=== PATIENT | female | born 1945 | race Caucasian/White ===

== ENCOUNTER 2016-06-23 10:10 | Inpatient (IN) | payer MEDICARE, OTHER ==
[2016-06-23 11:06] LABS: HEMATOCRIT 36.5 % (36.0-47.0); HEMOGLOBIN 12.7 g/dL (12.0-15.5); HGB HCT DIFFERENCE 1.6; MEAN CORPUSCULAR HEMOGLOBIN 31.6 pg (27.0-33.4); MEAN CORPUSCULAR HGB CONC 34.8 g/dL (32.0-36.0); MEAN CORPUSCULAR VOLUME 91 fl (80-97); RED BLOOD COUNT 4.02 10^6/uL (3.72-5.28); WHITE BLOOD COUNT 14.9 10^3/uL (4.0-10.5)
[2016-06-23] MEDS ORDERED: NORMAL SALINE 1000 ML 1,000 ML IV ONE (11:08)
[2016-06-23] MEDS ORDERED: IPRATROPIUM/ALBUTEROL 0.5-2.5 MG/3 ML AMPUL NEB ONE ×2 (11:08)
[2016-06-23] MEDS ORDERED: METHYLPREDNISOLONE INJ 125 MG/2 ML SDV IV ONE (11:08)
[2016-06-23 11:24] LABS: ALANINE AMINOTRANSFERASE 44 U/L (9-52); ALBUMIN 3.8 g/dL (3.5-5.0); ALKALINE PHOSPHATASE 121 U/L (38-126); ANION GAP 18 (5-19); ASPARTATE AMINO TRANSFERASE 39 U/L (14-36); BILIRUBIN,DIRECT 0.9 mg/dL (0.0-0.4); BILIRUBIN,TOTAL 1.7 mg/dL (0.2-1.3); BLOOD UREA NITROGEN 24 mg/dL (7-20); CALCIUM 9.8 mg/dL (8.4-10.2); CARBON DIOXIDE 23 mmol/L (22-30); CHLORIDE 93 mmol/L (98-107); CREATINE KINASE 101 U/L (30-135); GLUCOSE 236 mg/dL (75-110); POTASSIUM 3.5 mmol/L (3.6-5.0); SODIUM 134.4 mmol/L (137-145); TOTAL PROTEIN 7.3 g/dL (6.3-8.2)
[2016-06-23] MEDS ORDERED: LEVOFLOXACIN 750 MG/D5W RTU 150 ML IV ONE (11:30)
[2016-06-23 11:35] LABS: CREATINE KINASE MB 1.34 ng/mL (<4.55)
[2016-06-23 11:36] LABS: BAND NEUTROPHILS % (MANUAL) 1 % (3-5); BASOPHILS % (MANUAL) 0 % (0-2); EOSINOPHILS % (MANUAL) 0 % (0-6); LYMPHOCYTES % (MANUAL) 11 % (13-45); TOTAL CELLS COUNTED 100; TROPONIN I < 0.012 ng/mL
[2016-06-23 11:39] LABS: ANISOCYTOSIS SLIGHT; TOXIC GRANULATION 1+
--- NOTE | 2016-06-23 12:33 | ER Document Report ---
ED General - General Chief Complaint: Breathing Difficulty Stated Complaint: SHORTNESS OF BREATH Mode of Arrival: Medic Information source: Patient Notes: 71-year-old female history of asthma presents with complaints of 4 day duration of shortness of breath nonproductive cough. Patient admits low-grade temperature - HPI Onset: Last week Onset/Duration: Persistent Quality of pain: Achy Severity: Mild Pain Level: 1 Associated symptoms: Nonproductive cough, Shortness of breath Exacerbated by: Denies Relieved by: Denies Similar symptoms previously: No Recently seen / treated by doctor: No - Related Data Allergies/Adverse Reactions: aspartame [Aspartame] Allergy (Severe, Verified 07/05/12 14:13) yeast infection/UTI's rosiglitazone maleate [From Avandia] Allergy (Severe, Verified 07/05/12 14:10) couldn"t walk rosuvastatin calcium [From Crestor] Allergy (Severe, Verified 07/05/12 14:10) muscle cramps erythromycin base [From E-Mycin] Adverse Reaction (Severe, Verified 07/05/12 14: 10) Diarrhea simvastatin [From Zocor] Adverse Reaction (Unknown, Verified 07/05/12 14:10) ? reaction Home Medications: Current Home Medications Aspirin [Aspirin EC] 81 mg PO DAILY 06/23/16 [History] Calcium Carbonate/Vitamin D3 [Calcium 600-Vit D3 800 Tablet] 1 tab PO DAILY [History] Diphenhydramine HCl [Benadryl 25 mg Capsule] 25 mg PO DAILY 06/23/16 [History] Glipizide [Glipizide Xl] 10 mg PO DAILY 06/23/16 [History] Lisinopril/Hydrochlorothiazide [Zestoretic 20-25 mg Tablet] 1 tab PO DAILY 06/23 [History] Lysine HCl [l-Lysine] 500 mg PO DAILY 06/23/16 [History] Metformin HCl [Glucophage] 1,000 mg PO BID 06/23/16 [History] Niacin [Niacin ER] 500 mg PO BID 06/23/16 [History] [place]-3 Acid Ethyl Esters [Lovaza 1 gm Capsule] 1 gm PO QID 06/23/16 [History] Progesterone,Micronized [Prometrium 100 mg Capsule] 150 mg PO DAILY 06/23/16 [ History] Propranolol HCl [Inderal 20 mg Tablet] 20 mg PO BID 04/20/17 [History] Red Yeast Rice 1 cap PO DAILY 06/23/16 [History] Past Medical History - Social History Smoking Status: Never Smoker Cigarette use (# per day): No Chew tobacco use (# tins/day): No Smoking Education Provided: No Family History: Reviewed & Not Pertinent - Past Medical History Cardiac Medical History: Reports: Hx Hypercholesterolemia, Hx Hypertension - meds several yrs Denies: Hx Atrial Fibrillation, Hx Congestive Heart Failure, Hx Coronary Artery Disease, Hx Heart Attack, Hx Peripheral Vascular Disease, Hx Pulmonary Embolism, Hx Heart Murmur Pulmonary Medical History: Reports: Hx Asthma, Hx Pneumonia Denies: Hx Bronchitis, Hx COPD, Hx Respiratory Failure, Hx Sleep Apnea, Hx Tuberculosis Endocrine Medical History: Reports: Hx Diabetes Mellitus Type 2, Hx Hypothyroidism - on synthroid. Denies: Hx Graves' Disease, Hx Hyperthyroidism Renal/ Medical History: Reports: Hx Ovarian Cysts. Denies: Hx Pelvic Inflammatory Disease Malignancy Medical History: Denies: Hx Breast Cancer, Hx Cervical Cancer, Hx Lung Cancer, Hx Ovarian Cancer GI Medical History: Reports: Hx Irritable Bowel. Denies: Hx Crohn's Disease, Hx Gastroesophageal Reflux Disease, Hx Hiatal Hernia, Hx Liver Failure, Hx Ulcer Musculoskeltal Medical History: Reports Hx Arthritis, Denies Hx Fibromyalgia, Denies Hx Muscular Dystrophy Traumatic Medical History: Denies: Hx Fractures Past Surgical History: Reports: Hx Hysterectomy, Hx Orthopedic Surgery - neck, back, knees, Hx Tonsillectomy, Hx Tubal Ligation. Denies: Hx Appendectomy, Hx Bowel Surgery, Hx Section, Hx Cholecystectomy, Hx Colostomy, Hx Coronary Artery Bypass Graft, Hx Gastric Bypass Surgery, Hx Herniorrhaphy, Hx Mastectomy, Hx Pacemaker - Immunizations Hx Diphtheria, Pertussis, Tetanus Vaccination: Yes Hx Pneumococcal Vaccination: 07/12/12 Review of Systems - Review of Systems Notes: REVIEW OF SYSTEMS: CONSTITUTIONAL : Admits to low-grade fever EENT: Denies eye, ear, throat, or mouth pain or symptoms. Denies nasal or sinus congestion or discharge. Denies throat, tongue, or mouth swelling or difficulty swallowing. CARDIOVASCULAR: Denies chest pain. Denies palpitations or racing or irregular heart beat. Denies ankle edema. RESPIRATORY: Admits to nonproductive cough admits shortness of breath GASTROINTESTINAL: Denies abdominal pain or distention. Denies nausea, vomiting , or diarrhea. Denies blood in vomitus, stools, or per rectum. Denies black, tarry stools. Denies constipation. GENITOURINARY: Denies difficulty urinating, painful urination, burning, frequency, blood in urine, or discharge. FEMALE GENITOURINARY: Denies vaginal bleeding, heavy or abnormal periods, irregular periods. Denies vaginal discharge or odor. MUSCULOSKELETAL: Denies back or neck pain or stiffness. Denies joint pain or swelling. SKIN: Denies rash, lesions or sores. HEMATOLOGIC : Denies easy bruising or bleeding. LYMPHATIC: Denies swollen, enlarged glands. NEUROLOGICAL: Denies confusion or altered mental status. Denies passing out or loss of consciousness. Denies dizziness or lightheadedness. Denies headache. Denies weakness or paralysis or loss of use of either side. Denies problems with gait or speech. Denies sensory loss, numbness, or tingling. Denies seizures. PSYCHIATRIC: Denies anxiety or stress. Denies depression, suicidal ideation, or homicidal ideation. ALL OTHER SYSTEMS REVIEWED AND NEGATIVE. Dictation was performed using [employer] voice recognition software PHYSICAL EXAMINATION: GENERAL: Well-appearing, well-nourished and in no acute distress. HEAD: Atraumatic, normocephalic. EYES: Pupils equal round and reactive to light, extraocular movements intact, conjunctiva are normal. ENT: Nares patent, oropharynx clear without exudates. Moist mucous membranes. NECK: Normal range of motion, supple without lymphadenopathy LUNGS: Coarse wheezing right upper right lower lobe mild respiratory distress on 4 L nasal cannula satting 98% HEART: Regular rate and rhythm without murmurs ABDOMEN: Soft, nontender, nondistended abdomen. No guarding, no rebound. No masses appreciated. Female : deferred Musculoskeletal: Normal range of motion, no pitting or edema. No cyanosis. NEUROLOGICAL: Cranial nerves grossly intact. Normal speech, normal gait. Normal sensory, motor exams PSYCH: Normal mood, normal affect. SKIN: Warm, Dry, normal turgor, no rashes or lesions noted. Physical Exam - Vital signs Vitals: Pulse Ox 97 06/23/16 10:30 Course - Re-evaluation Re-evalutation: 06/23/16 12:33 Patient noted to have a white count, pneumonia, otherwise looks well. Patient started on breathing treatments 06/23/16 16:41 Patient was ambulated and satting 88% just walking a few steps, I will admit for hypoxemia respiratory distress - Vital Signs Vital signs: Temp Pulse Resp BP Pulse Ox 97.7 F 105 H 24 H 167/105 H 96 06/23/16 16:27 06/23/16 16:19 06/23/16 16:19 06/23/16 16:19 06/23/16 16:19 - Laboratory Result Diagrams: 06/23/16 10:44 06/23/16 10:44 Laboratory results interpreted by me: 06/23/16 06/23/16 06/23/16 10:44 10:44 13:45 WBC 14.9 H Seg Neuts % (Manual) 83 H Band Neutrophils % 1 L Lymphocytes % (Manual) 11 L Abs Neuts (Manual) 12.5 H Sodium 134.4 L Potassium 3.5 L Chloride 93 L BUN 24 H Est GFR (Non-Af Amer) 55 L Glucose 236 H Total Bilirubin 1.7 H Direct Bilirubin 0.9 H AST 39 H Urine Protein 100 H Urine Glucose (UA) >=500 H Urine Ketones 20 H Urine Urobilinogen 4.0 H - Diagnostic Test Radiology reviewed: Image reviewed, Reports reviewed - Right lower lobe pneumonia Critical Care Note - Critical Care Note Total time excluding time spent on procedures (mins): 49 Comments: minutes of critical care time spent in direct contact evaluating and reevaluating the patient, treating symptoms, reviewing labs and studies and speaking with family and consultants excluding any procedures Discharge - Discharge Clinical Impression: Hypoxemia Pneumonia Qualifiers: Pneumonia type: due to unspecified organism Laterality: right Lung location: lower lobe of lung Qualified Code(s): J18.1 - Lobar pneumonia, unspecified organism Disposition: ADMITTED INPATIENT Admitting Provider: Hospitalist Unit Admitted: [facility]
[2016-06-23] MEDS ORDERED: DEXTROSE 50%-WATER 25 GM/50 ML DISP.SYRIN IV PRN ×2 (14:08)
[2016-06-23] MEDS ORDERED: GLUCAGON,HUMAN RECOMB 1 MG INJ IM PRN (14:08)
[2016-06-23] MEDS ORDERED: DEXTROSE 40% GEL 15 GM TUBE PO PRN ×2 (14:08)
[2016-06-23] MEDS ORDERED: ALBUTEROL SULFATE 0.083% NEB 2.5 MG/3 ML AMPUL NEB PRN (14:09)
[2016-06-23] MEDS ORDERED: ACETAMINOPHEN 325 MG TABLET PO PRN (14:09)
[2016-06-23] MEDS ORDERED: HYDRALAZINE HCL INJ/PF 20 MG/1 ML SDV IV PRN (14:13)
[2016-06-23] MEDS ORDERED: POTASSIUM CHLORIDE 10 MEQ TABLET.SA PO ONE (14:30)
[2016-06-23 14:44] LABS: APPEARANCE,URINE SLIGHTLY-CLOUDY; BILIRUBIN,URINE NEGATIVE (NEGATIVE); GLUCOSE, URINE >=500 mg/dL (NEGATIVE); KETONES,URINE 20 mg/dL (NEGATIVE); LEUKOCYTE ESTERASE,URINE NEGATIVE (NEGATIVE); NITRITE,URINE NEGATIVE (NEGATIVE); PROTEIN,URINE 100 mg/dL (NEGATIVE); URINE SPECIFIC GRAVITY 1.015
[2016-06-23] MEDS ORDERED: ENOXAPARIN SODIUM INJ 40 MG/0.4 ML DISP.SYRIN SUBCUT ONE (15:30)
[2016-06-23] MEDS: INSULIN LISPRO 100 UNIT/ML 3 ML VIAL SUBCUT PRN ×2 (15:43→21:43)
[2016-06-23] MEDS: CEFTRIAXONE 1 GM/D5W RTU 1 GM/50 ML RTUPB IV SCH (15:44)
--- NOTE | 2016-06-23 17:57 | PDOC H&P ---
History of Present Illness Admission Date/PCP: [facility] Patient complains of: Shortness of breath History of Present Illness: ISRA ALICEA is a 71 year old female with several days history of cough, shortness breath, chills. Patient noted to have room air O2 sat of 88% in the emergency department. No definite sick contacts. She is reportedly up-to-date on her influenza vaccine and pneumococcal vaccine. She denies chest pain. She denies nausea or vomiting. Past Medical History Cardiac Medical History: Reports: Hyperlipidema, Hypertension - meds several yrs Denies: Atrial Fibrillation, Congestive Heart Failure, Coronary Artery Disease, Myocardial Infarction, Peripheral Vascular Disease, Pulmonary Embolism , Heart Murmur Pulmonary Medical History: Reports: Asthma, Pneumonia Denies: Bronchitis, Chronic Obstructive Pulmonary Disease (COPD), Respiratory Failure, Sleep Apnea, Tuberculosis Endocrine Medical History: Reports: Diabetes Mellitus Type 2, Hypothyroidism - on synthroid Denies: Hyperthyroidism Malignancy Medical History: Denies: Breast Cancer, Cervical Cancer, Lung Cancer, Ovarian Cancer GI Medical History: Denies: Crohn's Disease, Gastroesophageal Reflux Disease, Hiatal Hernia Musculoskeltal Medical History: Reports: Arthritis Denies: Fibromyalgia Psychiatric Medical History: Reports: Depression Past Surgical History Past Surgical History: Reports: Hysterectomy, Orthopedic Surgery - neck, back, knees, Tonsillectomy, Tubal Ligation Denies: Amputation, Appendectomy, Section, Cholecystectomy, Colostomy, Coronary Artery Bypass Graft, Gastric Bypass Surgery, Herniorrhaphy, Mastectomy, Pacemaker Social History Information Source: Patient Lives with: Spouse/Significant other Smoking Status: Never Smoker Frequency of Alcohol Use: Occasional Hx Recreational Drug Use: No Hx Prescription Drug Abuse: No - Advance Directive Resuscitation Status: Full Code Family History Family History: CAD, Hypertension Parental Family History Reviewed: Yes Children Family History Reviewed: Yes Sibling(s) Family History Reviewed.: Yes Medication/Allergy Home Medications: Aspirin [Aspirin EC] 81 mg PO DAILY 06/23/16 Calcium Carbonate/Vitamin D3 [Calcium 600-Vit D3 800 Tablet] 1 tab PO DAILY Diphenhydramine HCl [Benadryl 25 mg Capsule] 25 mg PO DAILY 06/23/16 Glipizide [Glipizide Xl] 10 mg PO DAILY 06/23/16 Lisinopril/Hydrochlorothiazide [Zestoretic 20-25 mg Tablet] 1 tab PO DAILY 06/23 Lysine HCl [l-Lysine] 500 mg PO DAILY 06/23/16 Metformin HCl [Glucophage] 1,000 mg PO BID 06/23/16 Niacin [Niacin ER] 500 mg PO BID 06/23/16 [place]-3 Acid Ethyl Esters [Lovaza 1 gm Capsule] 1 gm PO QID 06/23/16 Progesterone,Micronized [Prometrium 100 mg Capsule] 150 mg PO DAILY 06/23/16 Propranolol HCl [Inderal 20 mg Tablet] 20 mg PO BID 06/23/16 Red Yeast Rice 1 cap PO DAILY 06/23/16 Allergies/Adverse Reactions: aspartame [Aspartame] Allergy (Severe, Verified 07/05/12 14:13) yeast infection/UTI's rosiglitazone maleate [From Avandia] Allergy (Severe, Verified 07/05/12 14:10) couldn"t walk rosuvastatin calcium [From Crestor] Allergy (Severe, Verified 07/05/12 14:10) muscle cramps erythromycin base [From E-Mycin] Adverse Reaction (Severe, Verified 07/05/12 14: 10) Diarrhea simvastatin [From Zocor] Adverse Reaction (Unknown, Verified 07/05/12 14:10) ? reaction Review of Systems Constitutional: PRESENT: anorexia, chills, fatigue, fever(s), weakness. ABSENT : headache(s), weight gain, weight loss Eyes: ABSENT: visual disturbances Ears: ABSENT: hearing changes Cardiovascular: ABSENT: chest pain, dyspnea on exertion, edema, orthropnea, palpitations Respiratory: PRESENT: cough, dyspnea, sputum. ABSENT: hemoptysis Gastrointestinal: ABSENT: abdominal pain, constipation, diarrhea, hematemesis, hematochezia, nausea, vomiting Genitourinary: ABSENT: dysuria, hematuria Musculoskeletal: ABSENT: joint swelling Integumentary: ABSENT: rash, wounds Neurological: ABSENT: abnormal gait, abnormal speech, confusion, dizziness, focal weakness, syncope Psychiatric: ABSENT: anxiety, depression, homidical ideation, suicidal ideation Endocrine: ABSENT: cold intolerance, heat intolerance, polydipsia, polyuria Hematologic/Lymphatic: ABSENT: easy bleeding, easy bruising Physical Exam Vital Signs: Temp Pulse Resp BP Pulse Ox 97.7 F 105 H 24 H 167/105 H 97 06/23/16 16:33 06/23/16 16:33 04/20/17 16:33 06/23/16 16:33 06/23/16 16:33 Intake & Output 06/22/16 06/23/16 06/24/16 06:59 06:59 06:59 Weight 111.13 kg PHYSICAL EXAM: GENERAL: Appears well, no acute distress HEENT: Normocephalic, no scleral icterus, conjunctiva clear, EOEM intact, PERRLA , moist mucous membranes NECK: trachea midline, no thyromegally RESPIRATORY: Right anterior lung field rhonchi CARDIAC: Regular rate and rhythm, no murmur/ray/rub ABDOMEN: Soft, no distension, no tenderness, no guarding, normal bowel sounds, negative Sánchez sign RECTAL: deferred : deferred EXTREMITIES: No edema, cyanosis, clubbing MUSCULOSKELETAL: No joint swelling or deformity VASCULAR: normal peripheral pulses NEUROLOGIC: Alert, oriented to person/place/time, normal speech, cranial nerves grossly intact, 5/5 strength in all extremities, tactile sensation intact in all extremities SKIN: No rash, no wounds, no worrisome skin lesions PSYCHIATRIC: Normal mood, normal affect Results Laboratory Results: Labs- All tests 24 hr 06/23/16 06/23/16 06/23/16 10:44 10:44 10:44 WBC 14.9 H RBC 4.02 Hgb 12.7 Hct 36.5 MCV 91 MCH 31.6 MCHC 34.8 RDW 13.0 Plt Count 272 Total Counted 100 Seg Neutrophils % Not Reportable Seg Neuts % (Manual) 83 H Band Neutrophils % 1 L Lymphocytes % Not Reportable Lymphocytes % (Manual) 11 L Monocytes % Not Reportable Monocytes % (Manual) 5 Eosinophils % Not Reportable Eosinophils % (Manual) 0 Basophils % Not Reportable Basophils % (Manual) 0 Absolute Neutrophils Not Reportable Abs Neuts (Manual) 12.5 H Absolute Lymphocytes Not Reportable Abs Lymphs (Manual) 1.6 Absolute Monocytes Not Reportable Abs Monocytes (Manual) 0.7 Absolute Eosinophils Not Reportable Absolute Eos (Manual) 0.0 Absolute Basophils Not Reportable Abs Basophils (Manual) 0.0 Toxic Granulation 1+ Dohle Bodies PRESENT Platelet Comment ADEQUATE Anisocytosis SLIGHT Sodium 134.4 L Potassium 3.5 L Chloride 93 L Carbon Dioxide 23 Anion Gap 18 BUN 24 H Creatinine 1.00 Est GFR ( Amer) > 60 Est GFR (Non-Af Amer) 55 L Glucose 236 H POC Glucose Lactic Acid Calcium 9.8 Total Bilirubin 1.7 H Direct Bilirubin 0.9 H Indirect Bilirubin Not Reportable Neonat Total Bilirubin Not Reportable AST 39 H ALT 44 Alkaline Phosphatase 121 Creatine Kinase 101 CK-MB (CK-2) 1.34 Troponin I < 0.012 NT-Pro-B Natriuret Pep 188 Total Protein 7.3 Albumin 3.8 Urine Color Urine Appearance Urine pH Ur Specific [place] Urine Protein Urine Glucose (UA) Urine Ketones Urine Blood Urine Nitrite Urine Bilirubin Urine Urobilinogen Ur Leukocyte Esterase Urine WBC (Auto) Urine RBC (Auto) U Hyaline Cast (Auto) Squamous Epi Cells Auto Urine Mucus (Auto) Urine Ascorbic Acid 06/23/16 06/23/16 06/23/16 13:45 14:10 15:28 WBC RBC Hgb Hct MCV MCH MCHC RDW Plt Count Total Counted Seg Neutrophils % Seg Neuts % (Manual) Band Neutrophils % Lymphocytes % Lymphocytes % (Manual) Monocytes % Monocytes % (Manual) Eosinophils % Eosinophils % (Manual) Basophils % Basophils % (Manual) Absolute Neutrophils Abs Neuts (Manual) Absolute Lymphocytes Abs Lymphs (Manual) Absolute Monocytes Abs Monocytes (Manual) Absolute Eosinophils Absolute Eos (Manual) Absolute Basophils Abs Basophils (Manual) Toxic Granulation Dohle Bodies Platelet Comment Anisocytosis Sodium Potassium Chloride Carbon Dioxide Anion Gap BUN Creatinine Est GFR ( Amer) Est GFR (Non-Af Amer) Glucose POC Glucose 315 H Lactic Acid 1.8 Calcium Total Bilirubin Direct Bilirubin Indirect Bilirubin Neonat Total Bilirubin AST ALT Alkaline Phosphatase Creatine Kinase CK-MB (CK-2) Troponin I NT-Pro-B Natriuret Pep Total Protein Albumin Urine Color YELLOW Urine Appearance SLIGHTLY-CLOUDY Urine pH 5.0 Ur Specific [place] 1.015 Urine Protein 100 H Urine Glucose (UA) >=500 H Urine Ketones 20 H Urine Blood NEGATIVE Urine Nitrite NEGATIVE Urine Bilirubin NEGATIVE Urine Urobilinogen 4.0 H Ur Leukocyte Esterase NEGATIVE Urine WBC (Auto) 2 Urine RBC (Auto) 0 U Hyaline Cast (Auto) 3 Squamous Epi Cells Auto 2 Urine Mucus (Auto) RARE Urine Ascorbic Acid NEGATIVE Impressions: Chest X-Ray 06/23/16 10:32 IMPRESSION: Right lower lobe pneumonia. Assessment & Plan - Diagnosis (1) Acute hypoxemic respiratory failure Is this a current diagnosis for this admission?: YesPlan: Continue oxygen supplementation started in the emergency department. Wean off oxygen as tolerated. (2) Systemic inflammatory response syndrome (SIRS) Is this a current diagnosis for this admission?: YesPlan: Secondary to pneumonia. (3) Right lower lobe pneumonia Is this a current diagnosis for this admission?: YesPlan: Start IV Rocephin and IV Levaquin pending further blood and sputum culture. Likely bacterial. (4) Diabetes Is this a current diagnosis for this admission?: YesPlan: Continue glipizide. Hold metformin. Sliding scale insulin. (5) Hypertension Is this a current diagnosis for this admission?: YesPlan: Continue lisinopril and hydrochlorothiazide. When necessary IV hydralazine. (6) Hypothyroidism Is this a current diagnosis for this admission?: YesPlan: Patient takes a combination of levothyroxine and Cytomel that is compounded at local pharmacy. We will need to verify the dosage of patient's medication and resume. - Time Time Spent: Greater than 70 Minutes Anticipated discharge: Home Within: within 72 hours - Inpatient Certification Medical Necessity: Need Close Monitoring Due to Risk of Patient Decompensation, Need For IV Fluids
[2016-06-23] MEDS: PROPRANOLOL HCL 20 MG TABLET PO SCH (18:13)
[2016-06-23] MEDS: OMEGA-3 ACID ETHYL ESTERS 1 GM CAPSULE PO SCH ×2 (18:13→21:42)
--- NOTE | 2016-06-23 20:06 | EKG REPORT ---
SEVERITY:- ABNORMAL ECG - SINUS RHYTHM LEFT VENTRICULAR HYPERTROPHY : Confirmed by: Caitlyn Hamm MD 23-Jun-2016 20:05:52
[2016-06-23] MEDS: NIACIN 500 MG TABLET.SA PO SCH (21:42)
[2016-06-23] MEDS: GUAIFENESIN 600 MG TABLET.SA PO SCH (21:42)
[2016-06-24] MEDS: POTASSI CL 20 MEQ/NS 1L 1,000 ML IV PRN (04:49)
[2016-06-24 05:41] LABS: HEMATOCRIT 34.2 % (36.0-47.0); HEMOGLOBIN 11.9 g/dL (12.0-15.5); HGB HCT DIFFERENCE 1.5; MEAN CORPUSCULAR HEMOGLOBIN 31.7 pg (27.0-33.4); MEAN CORPUSCULAR HGB CONC 34.8 g/dL (32.0-36.0); MEAN CORPUSCULAR VOLUME 91 fl (80-97); RED BLOOD COUNT 3.75 10^6/uL (3.72-5.28); WHITE BLOOD COUNT 15.5 10^3/uL (4.0-10.5)
[2016-06-24 06:03] LABS: BAND NEUTROPHILS % (MANUAL) 1 % (3-5); BASOPHILS % (MANUAL) 0 % (0-2); EOSINOPHILS % (MANUAL) 0 % (0-6); LYMPHOCYTES % (MANUAL) 11 % (13-45); TOTAL CELLS COUNTED 100
[2016-06-24 06:04] LABS: RBC MORPHOLOGY COMMENT NORMO-CYTIC/CHROMIC; TOXIC GRANULATION SLIGHT; TOXIC VACUOLATION PRESENT
[2016-06-24 07:11] LABS: ALANINE AMINOTRANSFERASE 44 U/L (9-52); ALBUMIN 3.1 g/dL (3.5-5.0); ALKALINE PHOSPHATASE 97 U/L (38-126); ANION GAP 13 (5-19); ASPARTATE AMINO TRANSFERASE 35 U/L (14-36); BILIRUBIN,DIRECT 0.5 mg/dL (0.0-0.4); BILIRUBIN,TOTAL 0.9 mg/dL (0.2-1.3); BLOOD UREA NITROGEN 28 mg/dL (7-20); CALCIUM 9.3 mg/dL (8.4-10.2); CARBON DIOXIDE 22 mmol/L (22-30); CHLORIDE 103 mmol/L (98-107); CREATININE RESULT 0.83 mg/dL (0.52-1.25); GLUCOSE 240 mg/dL (75-110); POTASSIUM 4.3 mmol/L (3.6-5.0); SODIUM 138.4 mmol/L (137-145); TOTAL PROTEIN 6.3 g/dL (6.3-8.2)
[2016-06-24] MEDS: LEVOTHYROXINE SODIUM 0.075 MG TABLET PO SCH (08:15)
[2016-06-24] MEDS: LIOTHYRONINE SODIUM 25 MCG TABLET PO SCH (08:15)
[2016-06-24] MEDS: INSULIN LISPRO 100 UNIT/ML 3 ML VIAL SUBCUT PRN ×2 (08:17→11:52)
[2016-06-24] MEDS: ENOXAPARIN SODIUM INJ 40 MG/0.4 ML DISP.SYRIN SUBCUT SCH (08:18)
[2016-06-24] MEDS ORDERED: PROGESTERONE MICRONIZED PO SCH (10:00)
[2016-06-24] MEDS ORDERED: (PENDING PHARMACY ID) (Calcium Carbonate/Vitamin D3 [Calcium 600-Vit D3 800 Tablet] 1 TAB) PO SCH (10:00)
[2016-06-24] MEDS ORDERED: (PENDING PHARMACY ID) (Lisinopril/Hydrochlorothiazide [Zestoretic 20-25 Mg Tablet] 1 TAB) PO SCH (10:00)
[2016-06-24] MEDS: ASPIRIN 81 MG TABLET, ENT COATED PO SCH (10:33)
[2016-06-24] MEDS: HYDROCHLOROTHIAZIDE 25 MG TABLET PO SCH (10:33)
[2016-06-24] MEDS: GUAIFENESIN 600 MG TABLET.SA PO SCH ×2 (10:34→21:48)
[2016-06-24] MEDS: OMEGA-3 ACID ETHYL ESTERS 1 GM CAPSULE PO SCH ×4 (10:35→21:48)
[2016-06-24] MEDS: CALCIUM CARBONATE 250 MG/VITAMIN D3 125 UNIT TABLET PO SCH (10:35)
[2016-06-24] MEDS: PROPRANOLOL HCL 20 MG TABLET PO SCH ×2 (10:35→18:48)
[2016-06-24] MEDS: LEVOFLOXACIN 750 MG/D5W RTU 150 ML IV SCH (10:36)
[2016-06-24] MEDS: GLIPIZIDE XL 5 MG TAB.ER.24 PO SCH (10:36)
[2016-06-24] MEDS: LISINOPRIL 10 MG TABLET PO SCH (10:37)
[2016-06-24] MEDS: NIACIN 500 MG TABLET.SA PO SCH ×2 (10:37→18:48)
--- NOTE | 2016-06-24 16:56 | PDOC PROGRESS REPORT ---
Subjective Progress Note for:: 06/24/16 Subjective:: Patient seen on morning rounds. She is resting on side of bed. Her was at bedside. She states her breathing is improved. She denies any significant dyspnea at the present time. She continues to have a nonproductive cough. She denies chest pain, dizziness or shortness of breath. She denies any nausea, vomiting or abdominal pain. She denies is no epigastric arthralgias or myalgias. Physical Exam Vital Signs: Temp Pulse Resp BP Pulse Ox 97.6 F 59 L 16 130/56 H 95 06/24/16 12:03 06/24/16 14:00 06/24/16 12:35 06/24/16 12:03 06/24/16 12:35 Intake & Output 06/23/16 06/24/16 06/25/16 06:59 06:59 06:59 Intake Total 2517 Balance 2517 Weight 112.1 kg General appearance: PRESENT: no acute distress, morbidly obese, well-developed, well-nourished Head exam: PRESENT: atraumatic, normocephalic Eye exam: PRESENT: conjunctiva pink, EOMI, PERRLA. ABSENT: scleral icterus Ear exam: PRESENT: normal external ear exam Mouth exam: PRESENT: moist, tongue midline Neck exam: ABSENT: carotid bruit, JVD, lymphadenopathy, thyromegaly Respiratory exam: PRESENT: crackles - right base, symmetrical, unlabored Cardiovascular exam: PRESENT: RRR. ABSENT: diastolic murmur, rubs, systolic murmur Pulses: PRESENT: normal dorsalis pedis pul Vascular exam: PRESENT: normal capillary refill GI/Abdominal exam: PRESENT: normal bowel sounds, soft. ABSENT: distended, guarding, mass, organolmegaly, rebound, tenderness Rectal exam: PRESENT: deferred Extremities exam: PRESENT: full ROM. ABSENT: calf tenderness, clubbing, pedal edema Neurological exam: PRESENT: alert, awake, oriented to person, oriented to place , oriented to time, oriented to situation, CN II-XII grossly intact. ABSENT: motor sensory deficit Psychiatric exam: PRESENT: appropriate affect, normal mood. ABSENT: homicidal ideation, suicidal ideation Skin exam: PRESENT: dry, intact, warm. ABSENT: cyanosis, rash Results Laboratory Results: 06/24/16 04:16 06/24/16 06:35 06/24/16 06/24/16 06/24/16 04:16 04:16 06:35 WBC 15.5 H RBC 3.75 Hgb 11.9 L Hct 34.2 L MCV 91 MCH 31.7 MCHC 34.8 RDW 13.0 Plt Count 240 Seg Neutrophils % Not Reportable Lymphocytes % Not Reportable Monocytes % Not Reportable Eosinophils % Not Reportable Basophils % Not Reportable Absolute Neutrophils Not Reportable Absolute Lymphocytes Not Reportable Absolute Monocytes Not Reportable Absolute Eosinophils Not Reportable Absolute Basophils Not Reportable Sodium Cancelled 138.4 Potassium Cancelled 4.3 Chloride Cancelled 103 Carbon Dioxide Cancelled 22 Anion Gap Cancelled 13 BUN Cancelled 28 H Creatinine Cancelled 0.83 Est GFR ( Amer) Cancelled > 60 Est GFR (Non-Af Amer) Cancelled > 60 Glucose Cancelled 240 H Calcium Cancelled 9.3 Total Bilirubin Cancelled 0.9 AST Cancelled 35 ALT Cancelled 44 Alkaline Phosphatase Cancelled 97 Total Protein Cancelled 6.3 Albumin Cancelled 3.1 L Impressions: Chest X-Ray 06/23/16 10:32 IMPRESSION: Right lower lobe pneumonia. Assessment & Plan - Diagnosis (1) Acute hypoxemic respiratory failure Is this a current diagnosis for this admission?: YesPlan: Patient with room air oxygen saturation 80% in the emergency room. She has no history of COPD on home oxygen use. She was found to have right lower lobe pneumonia she is being treated with IV broad-spectrum antibiotics and nebulizer treatments. (2) Right lower lobe pneumonia Is this a current diagnosis for this admission?: YesPlan: Continue current antibiotics, cultures are pending. (3) Diabetes Qualifiers: Diabetes mellitus type: type 2 Diabetes mellitus correction insulin use : without correction use Is this a current diagnosis for this admission?: YesPlan: continue current medications and sliding scale coverage. Presently holding metformin. (4) Hypothyroidism Is this a current diagnosis for this admission?: Yes (5) Systemic inflammatory response syndrome (SIRS) Is this a current diagnosis for this admission?: YesPlan: Tachycardia has resolved with IV fluid and antibiotic therapy (6) Hypertension Is this a current diagnosis for this admission?: YesPlan: Presently normotensive on current medications - Time Time Spent with patient: 25-34 minutes Critical Time spent with patient: 15-24 minutes Medications reviewed and adjusted accordingly: Yes Anticipated discharge: Home
[2016-06-24] MEDS: CEFTRIAXONE 1 GM/D5W RTU 1 GM/50 ML RTUPB IV SCH (18:48)
[2016-06-25] MEDS: POTASSI CL 20 MEQ/NS 1L 1,000 ML IV PRN (05:09)
[2016-06-25 07:03] LABS: ALANINE AMINOTRANSFERASE 63 U/L (9-52); ALKALINE PHOSPHATASE 85 U/L (38-126); ANION GAP 13 (5-19); ASPARTATE AMINO TRANSFERASE 47 U/L (14-36); BILIRUBIN,DIRECT 0.2 mg/dL (0.0-0.4); BILIRUBIN,TOTAL 0.5 mg/dL (0.2-1.3); BLOOD UREA NITROGEN 28 mg/dL (7-20); CALCIUM 9.7 mg/dL (8.4-10.2); CARBON DIOXIDE 20 mmol/L (22-30); CHLORIDE 106 mmol/L (98-107); CREATININE RESULT 0.84 mg/dL (0.52-1.25); GLUCOSE 93 mg/dL (75-110); SODIUM 139.1 mmol/L (137-145)
[2016-06-25 07:20] LABS: HEMOGLOBIN 11.2 g/dL (12.0-15.5); HGB HCT DIFFERENCE 1.6; MEAN CORPUSCULAR HGB CONC 35.1 g/dL (32.0-36.0); MEAN CORPUSCULAR VOLUME 91 fl (80-97); RED CELL DISTRIBUTION WIDTH 12.9 % (11.5-14.0); WHITE BLOOD COUNT 21.3 10^3/uL (4.0-10.5)
[2016-06-25 07:36] LABS: BAND NEUTROPHILS % (MANUAL) 3 % (3-5); BASOPHILS % (MANUAL) 0 % (0-2); EOSINOPHILS % (MANUAL) 0 % (0-6); LYMPHOCYTES % (MANUAL) 14 % (13-45); TOTAL CELLS COUNTED 100
[2016-06-25 07:37] LABS: RBC MORPHOLOGY COMMENT NORMO-CYTIC/CHROMIC
[2016-06-25] MEDS: LIOTHYRONINE SODIUM 25 MCG TABLET PO SCH (09:37)
[2016-06-25] MEDS: LEVOTHYROXINE SODIUM 0.075 MG TABLET PO SCH (09:38)
[2016-06-25] MEDS: GUAIFENESIN 600 MG TABLET.SA PO SCH ×2 (09:39→21:22)
[2016-06-25] MEDS: HYDROCHLOROTHIAZIDE 25 MG TABLET PO SCH (09:39)
[2016-06-25] MEDS: LISINOPRIL 10 MG TABLET PO SCH (09:40)
[2016-06-25] MEDS: LEVOFLOXACIN 750 MG/D5W RTU 150 ML IV SCH (09:41)
[2016-06-25] MEDS: NIACIN 500 MG TABLET.SA PO SCH ×2 (09:42→21:23)
[2016-06-25] MEDS: ASPIRIN 81 MG TABLET, ENT COATED PO SCH (09:42)
[2016-06-25] MEDS: GLIPIZIDE XL 5 MG TAB.ER.24 PO SCH (09:42)
[2016-06-25] MEDS: OMEGA-3 ACID ETHYL ESTERS 1 GM CAPSULE PO SCH ×4 (09:42→21:23)
[2016-06-25] MEDS: PROPRANOLOL HCL 20 MG TABLET PO SCH ×2 (09:42→17:38)
[2016-06-25] MEDS: CALCIUM CARBONATE 250 MG/VITAMIN D3 125 UNIT TABLET PO SCH (09:43)
[2016-06-25] MEDS: ENOXAPARIN SODIUM INJ 40 MG/0.4 ML DISP.SYRIN SUBCUT SCH (09:51)
--- NOTE | 2016-06-25 10:11 | PDOC PROGRESS REPORT ---
Subjective Progress Note for:: 06/25/16 Subjective:: Patient seen on morning rounds. She is resting on side of bed. Her was at bedside. She states her breathing is improved. She denies any significant dyspnea at the present time. She is now having a productive cough. She denies chest pain, dizziness or shortness of breath. She denies any nausea, vomiting or abdominal pain. She is complaining of left neck and shoulder pain. She states this is a chronic problem for her that has been exacerbated by the hospital bed. Physical Exam Vital Signs: Temp Pulse Resp BP Pulse Ox 98.0 F 64 22 H 160/70 H 96 06/25/16 07:56 06/25/16 07:56 06/25/16 07:56 06/25/16 07:56 06/25/16 07:56 Intake & Output 06/24/16 06/25/16 06/26/16 06:59 06:59 06:59 Intake Total 2517 2861 Balance 2517 2861 Weight 112.1 kg 106.2 kg General appearance: PRESENT: no acute distress, morbidly obese, well-developed, well-nourished Head exam: PRESENT: atraumatic, normocephalic Eye exam: PRESENT: conjunctiva pink, EOMI, PERRLA. ABSENT: scleral icterus Ear exam: PRESENT: normal external ear exam Mouth exam: PRESENT: moist, tongue midline Neck exam: ABSENT: carotid bruit, JVD, lymphadenopathy, thyromegaly Respiratory exam: PRESENT: crackles - right, symmetrical, unlabored. ABSENT: rales, rhonchi, wheezes Cardiovascular exam: PRESENT: RRR. ABSENT: diastolic murmur, rubs, systolic murmur Pulses: PRESENT: normal dorsalis pedis pul Vascular exam: PRESENT: normal capillary refill GI/Abdominal exam: PRESENT: normal bowel sounds, soft. ABSENT: distended, guarding, mass, organolmegaly, rebound, tenderness Extremities exam: PRESENT: full ROM. ABSENT: calf tenderness, clubbing, pedal edema Musculoskeletal exam: PRESENT: ambulatory, full ROM, normal inspection Neurological exam: PRESENT: alert, awake, oriented to person, oriented to place , oriented to time, oriented to situation, CN II-XII grossly intact. ABSENT: motor sensory deficit Psychiatric exam: PRESENT: appropriate affect, normal mood. ABSENT: homicidal ideation, suicidal ideation Skin exam: PRESENT: dry, intact, warm. ABSENT: cyanosis, rash Results Laboratory Results: 06/25/16 06:07 06/25/16 06:07 06/25/16 06/25/16 06:07 06:07 WBC 21.3 H RBC 3.50 L Hgb 11.2 L Hct 32.0 L MCV 91 MCH 32.0 MCHC 35.1 RDW 12.9 Plt Count 274 Seg Neutrophils % Not Reportable Lymphocytes % Not Reportable Monocytes % Not Reportable Eosinophils % Not Reportable Basophils % Not Reportable Absolute Neutrophils Not Reportable Absolute Lymphocytes Not Reportable Absolute Monocytes Not Reportable Absolute Eosinophils Not Reportable Absolute Basophils Not Reportable Sodium 139.1 Potassium 4.0 Chloride 106 Carbon Dioxide 20 L Anion Gap 13 BUN 28 H Creatinine 0.84 Est GFR ( Amer) > 60 Est GFR (Non-Af Amer) > 60 Glucose 93 Calcium 9.7 Total Bilirubin 0.5 AST 47 H ALT 63 H Alkaline Phosphatase 85 Total Protein 6.0 L Albumin 3.0 L Impressions: Chest X-Ray 06/23/16 10:32 IMPRESSION: Right lower lobe pneumonia. Assessment & Plan - Diagnosis (1) Acute hypoxemic respiratory failure Is this a current diagnosis for this admission?: YesPlan: Patient with room air oxygen saturation 80% in the emergency room. She has no history of COPD on home oxygen use. She was found to have right lower lobe pneumonia she is being treated with IV broad-spectrum antibiotics and nebulizer treatments. (2) Right lower lobe pneumonia Is this a current diagnosis for this admission?: YesPlan: Continue current antibiotics, cultures are pending. (3) Diabetes Qualifiers: Diabetes mellitus type: type 2 Diabetes mellitus termination clerk insulin use : without termination clerk use Is this a current diagnosis for this admission?: YesPlan: continue current medications and sliding scale coverage. Presently holding metformin. (4) Hypothyroidism Is this a current diagnosis for this admission?: YesPlan: Continue synthroid (5) Systemic inflammatory response syndrome (SIRS) Is this a current diagnosis for this admission?: YesPlan: Tachycardia has resolved with IV fluid and antibiotic therapy (6) Hypertension Is this a current diagnosis for this admission?: YesPlan: Presently normotensive on current medications - Time Time Spent with patient: 25-34 minutes Critical Time spent with patient: 15-24 minutes Medications reviewed and adjusted accordingly: Yes
[2016-06-25] MEDS: KETOROLAC TROMETHAMINE INJ/PF 30 MG/1 ML SDV IV PRN (12:12)
[2016-06-25] MEDS: METHOCARBAMOL 750 MG TABLET PO PRN (12:17)
[2016-06-25] MEDS: INSULIN LISPRO 100 UNIT/ML 3 ML VIAL SUBCUT PRN ×2 (12:36→21:22)
[2016-06-25] MEDS: CEFTRIAXONE 1 GM/D5W RTU 1 GM/50 ML RTUPB IV SCH (17:37)
[2016-06-25] MEDS ORDERED: ASPIRIN 81 MG TABLET, ENT COATED PO SCH (22:00)
[2016-06-26 04:57] LABS: HEMOGLOBIN 11.4 g/dL (12.0-15.5); HGB HCT DIFFERENCE 1.2; MEAN CORPUSCULAR HEMOGLOBIN 31.1 pg (27.0-33.4); MEAN CORPUSCULAR HGB CONC 34.4 g/dL (32.0-36.0); MEAN CORPUSCULAR VOLUME 90 fl (80-97); RED BLOOD COUNT 3.65 10^6/uL (3.72-5.28); RED CELL DISTRIBUTION WIDTH 12.9 % (11.5-14.0); WHITE BLOOD COUNT 15.7 10^3/uL (4.0-10.5)
[2016-06-26 05:04] LABS: ALANINE AMINOTRANSFERASE 53 U/L (9-52); ALBUMIN 2.9 g/dL (3.5-5.0); ALKALINE PHOSPHATASE 84 U/L (38-126); ANION GAP 13 (5-19); ASPARTATE AMINO TRANSFERASE 36 U/L (14-36); BILIRUBIN,DIRECT 0.2 mg/dL (0.0-0.4); BILIRUBIN,TOTAL 0.6 mg/dL (0.2-1.3); BLOOD UREA NITROGEN 28 mg/dL (7-20); CALCIUM 9.8 mg/dL (8.4-10.2); CARBON DIOXIDE 21 mmol/L (22-30); CHLORIDE 104 mmol/L (98-107); CREATININE RESULT 0.86 mg/dL (0.52-1.25); GLUCOSE 89 mg/dL (75-110); POTASSIUM 4.1 mmol/L (3.6-5.0); SODIUM 137.9 mmol/L (137-145); TOTAL PROTEIN 5.9 g/dL (6.3-8.2)
[2016-06-26] MEDS: METHOCARBAMOL 750 MG TABLET PO PRN (06:07)
[2016-06-26 06:16] LABS: BAND NEUTROPHILS % (MANUAL) 2 % (3-5); BASOPHILS % (MANUAL) 0 % (0-2); EOSINOPHILS % (MANUAL) 3 % (0-6); LYMPHOCYTES % (MANUAL) 25 % (13-45); TOTAL CELLS COUNTED 100
[2016-06-26 06:20] LABS: BURR CELLS SLIGHT; ROULEAUX 1+; TOXIC GRANULATION 1+; TOXIC VACUOLATION PRESENT
[2016-06-26] MEDS: KETOROLAC TROMETHAMINE INJ/PF 30 MG/1 ML SDV IV PRN (06:54)
[2016-06-26] MEDS: LEVOFLOXACIN 750 MG/D5W RTU 150 ML IV SCH (09:35)
[2016-06-26] MEDS: ENOXAPARIN SODIUM INJ 40 MG/0.4 ML DISP.SYRIN SUBCUT SCH (09:36)
[2016-06-26] MEDS: GUAIFENESIN 600 MG TABLET.SA PO SCH (09:38)
[2016-06-26] MEDS: LEVOTHYROXINE SODIUM 0.075 MG TABLET PO SCH (09:38)
[2016-06-26] MEDS: LIOTHYRONINE SODIUM 25 MCG TABLET PO SCH (09:38)
[2016-06-26] MEDS: CALCIUM CARBONATE 250 MG/VITAMIN D3 125 UNIT TABLET PO SCH (09:39)
[2016-06-26] MEDS: OMEGA-3 ACID ETHYL ESTERS 1 GM CAPSULE PO SCH (09:39)
[2016-06-26] MEDS: GLIPIZIDE XL 5 MG TAB.ER.24 PO SCH (09:40)
[2016-06-26] MEDS: LISINOPRIL 10 MG TABLET PO SCH (09:41)
[2016-06-26] MEDS: HYDROCHLOROTHIAZIDE 25 MG TABLET PO SCH (09:41)
[2016-06-26] MEDS: NIACIN 500 MG TABLET.SA PO SCH (09:41)
[2016-06-26] MEDS: PROPRANOLOL HCL 20 MG TABLET PO SCH (10:01)
[2016-06-26] MEDS: INSULIN LISPRO 100 UNIT/ML 3 ML VIAL SUBCUT PRN (12:17)
[2016-06-26 13:02] VITALS: BP 148/67
--- NOTE | 2016-06-26 14:31 | PDOC DISCHARGE SUMMARY ---
General - Admit/Disc Date/PCP Admission Date/Primary Care Provider: 06/23/16 14:20 Discharge Date: 06/26/16 - Discharge Diagnosis (1) Acute hypoxemic respiratory failure Is this a current diagnosis for this admission?: YesSummary: Resolved. Patient no longer hypoxemic. Continue levaquin 750 mg daily for the next 7 days (2) Right lower lobe pneumonia Is this a current diagnosis for this admission?: YesSummary: Improving. Continue Levaquin 750 mg daily for the next 7 days (3) Diabetes Is this a current diagnosis for this admission?: YesSummary: Continue current medications (4) Hypothyroidism Is this a current diagnosis for this admission?: YesSummary: Continue Synthroid (5) Systemic inflammatory response syndrome (SIRS) Is this a current diagnosis for this admission?: NoSummary: Resolved (6) Hypertension Is this a current diagnosis for this admission?: YesSummary: Continue current medications. She is normotensive - Additional Information Resuscitation Status: Full Code Discharge Diet: Regular Discharge Activity: Activity As Tolerated, Balance Activity w/Rest Home Medications: Aspirin [Aspirin EC] 81 mg PO DAILY 06/23/16 Calcium Carbonate/Vitamin D3 [Calcium 600-Vit D3 800 Tablet] 1 tab PO DAILY Diphenhydramine HCl [Benadryl 25 mg Capsule] 25 mg PO DAILY 06/23/16 Glipizide [Glipizide Xl] 10 mg PO DAILY 06/23/16 Lisinopril/Hydrochlorothiazide [Zestoretic 20-25 mg Tablet] 1 tab PO DAILY 06/23 Lysine HCl [l-Lysine] 500 mg PO DAILY 06/23/16 Metformin HCl [Glucophage] 1,000 mg PO BID 06/23/16 Niacin [Niacin ER] 500 mg PO BID 06/23/16 [place]-3 Acid Ethyl Esters [Lovaza 1 gm Capsule] 1 gm PO QID 06/23/16 Progesterone,Micronized [Prometrium 100 mg Capsule] 150 mg PO DAILY 06/23/16 Propranolol HCl [Inderal 20 mg Tablet] 20 mg PO BID 06/23/16 Red Yeast Rice 1 cap PO DAILY 06/23/16 Acetaminophen [Tylenol 325 mg Tablet] 650 mg PO Q4HP PRN tablet 06/26/16 Aspirin [Ecotrin 81 mg EC Tablet] 81 mg PO QHS tabec 06/26/16 Guaifenesin [Mucinex Sr 600 mg Tablet.sa] 1,200 mg PO Q12 tablet.sa 06/26/16 Levofloxacin [Levaquin 750 mg Tablet] 750 mg PO DAILY #7 tablet 06/26/16 History of Present Illness Patient complains of: Shortness of breath and cough History of Present Illness: ISRA ALICEA is a 71 year old female with several days history of cough, shortness breath, chills. Patient noted to have room air O2 sat of 88% in the emergency department. No definite sick contacts. She is reportedly up-to-date on her influenza vaccine and pneumococcal vaccine. She denies chest pain. She denies nausea or vomiting. Hospital Course Hospital Course: She was referred to the hospitalist service for admission. She was admitted to telemetry unit as an inpatient. She had IV broad-spectrum antibiotics and place after blood cultures were obtained. IV steroids and nebulizers treatments were also initiated. Patient improved over the next 48 hours. Her leukocytosis improved and resolved. She her oxygen needs resolved to baseline. Her room air oxygen saturation ambulating was 97%. She therefore feels ready for discharge. Physical Exam Vital Signs: Temp Pulse Resp BP Pulse Ox 98.0 F 66 18 148/67 H 98 06/26/16 12:51 06/26/16 12:51 06/26/16 12:51 06/26/16 12:51 06/26/16 12:51 Intake & Output 06/25/16 06/26/16 06/27/16 06:59 06:59 06:59 Intake Total 2861 2491 Balance 2861 2491 Weight 106.2 kg 107.6 kg General appearance: PRESENT: no acute distress, morbidly obese, well-developed, well-nourished Head exam: PRESENT: atraumatic, normocephalic Eye exam: PRESENT: conjunctiva pink, EOMI, PERRLA. ABSENT: scleral icterus Ear exam: PRESENT: normal external ear exam Mouth exam: PRESENT: moist, tongue midline Neck exam: ABSENT: carotid bruit, JVD, lymphadenopathy, thyromegaly Respiratory exam: PRESENT: clear to auscultation katie. ABSENT: rales, rhonchi, wheezes Cardiovascular exam: PRESENT: RRR. ABSENT: diastolic murmur, rubs, systolic murmur Pulses: PRESENT: normal dorsalis pedis pul Vascular exam: PRESENT: normal capillary refill GI/Abdominal exam: PRESENT: normal bowel sounds, soft. ABSENT: distended, guarding, mass, organolmegaly, rebound, tenderness Rectal exam: PRESENT: deferred Extremities exam: PRESENT: full ROM. ABSENT: calf tenderness, clubbing, pedal edema Musculoskeletal exam: PRESENT: ambulatory, normal inspection Neurological exam: PRESENT: alert, awake, oriented to person, oriented to place , oriented to time, oriented to situation, CN II-XII grossly intact. ABSENT: motor sensory deficit Psychiatric exam: PRESENT: appropriate affect, normal mood. ABSENT: homicidal ideation, suicidal ideation Skin exam: PRESENT: dry, intact, warm. ABSENT: cyanosis, rash Results Laboratory Results: 06/26/16 03:53 06/26/16 03:53 06/26/16 06/26/16 03:53 03:53 WBC 15.7 H RBC 3.65 L Hgb 11.4 L Hct 33.0 L MCV 90 MCH 31.1 MCHC 34.4 RDW 12.9 Plt Count 288 Seg Neutrophils % Not Reportable Lymphocytes % Not Reportable Monocytes % Not Reportable Eosinophils % Not Reportable Basophils % Not Reportable Absolute Neutrophils Not Reportable Absolute Lymphocytes Not Reportable Absolute Monocytes Not Reportable Absolute Eosinophils Not Reportable Absolute Basophils Not Reportable Sodium 137.9 Potassium 4.1 Chloride 104 Carbon Dioxide 21 L Anion Gap 13 BUN 28 H Creatinine 0.86 Est GFR ( Amer) > 60 Est GFR (Non-Af Amer) > 60 Glucose 89 Calcium 9.8 Total Bilirubin 0.6 AST 36 ALT 53 H Alkaline Phosphatase 84 Total Protein 5.9 L Albumin 2.9 L Impressions: Chest X-Ray 06/23/16 10:32 IMPRESSION: Right lower lobe pneumonia. Qualifiers PATEINT BEING DISCHARGED WITH ANY OF THE FOLLOWING DIAGNOSIS?: No Plan Discharge Plan: Home with Time Spent: Less than 30 Minutes
[2016-06-27] MEDS ORDERED: LEVOFLOXACIN 750 MG TABLET PO SCH (10:00)
== END 2016-06-26 14:13 | disposition home or self-care (01) | DRG 193 ==
LOC: ER 10:10 → EH 14:20 → 4N 16:26
PROVIDERS: ADMIT Family Medicine; ATTEND Family Medicine
PROC: 3E0F73Z Introduction of Anti-inflammatory into Respiratory Tract, Via Natural or Artificial Opening (ICD-10-PCS; principal; 2016-06-24)
DX: J15.9 Unspecified bacterial pneumonia (principal); J96.01 Acute respiratory failure with hypoxia; E11.9 Type 2 diabetes mellitus without complications; E03.9 Hypothyroidism, unspecified; I10 Essential (primary) hypertension; E78.5 Hyperlipidemia, unspecified; F32.9 Major depressive disorder, single episode, unspecified; M19.90 Unspecified osteoarthritis, unspecified site; K58.9 Irritable bowel syndrome, unspecified; Z79.82 Long term (current) use of aspirin; Z79.899 Other long term (current) drug therapy; Z90.710 Acquired absence of both cervix and uterus; Z88.8 Allergy status to other drugs, medicaments and biological substances; Z88.3 Allergy status to other anti-infective agents; Z82.49 Family history of ischemic heart disease and other diseases of the circulatory system
CPT/HCPCS: 36415; 71010; 80053; 81001; 82550; 82553; 82962; 83036; 83605; 83880; 84484; 85025; 87040; 87070; 87205; 93005; 93010; 96361; 96365; 96366; 96375; 99285; J0360; J0696; J1650; J1815; J1885; J1956; J2930; J3480; J3490; J7030; J7620

== ENCOUNTER → 2016-08-16 | Outpatient (CLI) | payer MEDICARE, OTHER ==
--- NOTE | 2016-08-16 15:34 | WOMENS IMAGING REPORT ---
EXAM DESCRIPTION: BILAT SCREENING MAMMO W/CAD COMPLETED DATE/TIME: 08/16/2016 8:55 am REASON FOR STUDY: Z12.31, ROUTINE SCREENING MAMMO Z12.31 ENCNTR SCREEN MAMMOGRAM FOR MALIGNANT NEOP LASM OF ANTHONY COMPARISON: 2009 to 2013 TECHNIQUE: Standard craniocaudal and mediolateral oblique views of each breast recorded using B[place] l acquisition. LIMITATIONS: None. FINDINGS: No masses, calcifications or architectural distortion. No areas of suspicion. Read with the assistance of CAD. .[facility] - R2 Cenova Version 1.3 .[facility] - R2 Cenova Version 1.3 .[facility] - R2 Cenova Version 2.4 .[facility] - R2 Cenova Version 2.4 .[facility] - R2 Data Center Architect Version 9.2 IMPRESSION: NORMAL MAMMOGRAM. BIRADS 1. BREAST DENSITY: c. The breasts are heterogeneously dense, which may obscure small masses. BIRAD: 1 NEGATIVE RECOMMENDATION: ROUTINE SCREENING COMMENT: The patient has been notified of the results by letter per SA requirements. Additional no tification policies are in place for contacting patient with suspicious or incomplete findings. Quality ID #225: The [employer] recommends an annual screening mammogram for women aged 40 years or over. This facility utilizes a reminder system to ensure that all patients receive reminder letters, and/or direct phone calls for appointments. This includes reminders for routine scr eening mammograms, diagnostic mammograms, or other Breast Imaging Interventions when appropriate. Th is patient will be placed in the appropriate reminder system. The [employer] (ACR) has developed recommendations for screening MRI of the breast s in certain patient populations, to be used in conjunction with mammography. Breast MRI surveillanc e may be appropriate for women with more than 20% lifetime risk of developing breast cancer as deter mined by genetic testing, significant family history of the disease, or history of mantle radiation f or Hodgkins Disease. ACR Practice Guidelines 2008. TECHNICAL DOCUMENTATION: FINDING NUMBER: (1) ASSESSMENT: (1) JOB ID: [id number] [employer]- All Rights Reserved
== END ==
LOC: WI 09:44
PROVIDERS: ATTEND Family Medicine
DX: Z12.31 Encounter for screening mammogram for malignant neoplasm of breast (principal)
CPT/HCPCS: 77067; G0202

== ENCOUNTER → 2017-08-30 | Outpatient (CLI) | payer MEDICARE, OTHER ==
--- NOTE | 2017-08-30 10:51 | WOMENS IMAGING REPORT ---
EXAM DESCRIPTION: BONE DENSITY HIP/SPINE COMPLETED DATE/TIME: 08/30/2017 10:15 am REASON FOR STUDY: ESTROGEN ; E28.39 Z12.31 ENCNTR SCREEN MAMMOGRAM FOR MALIGNANT NEOPLASM OF ANTHONY M8 5.80 OTH DISRD OF BONE DENSITY AND STRUCTURE, UNSPECIFIED E28.39 OTHER PRIMARY OVARIAN FAILURE COMPARISON: 08/30/2017 TECHNIQUE: Dual-Energy X-ray Absorptiometry (DEXA) of the AP Spine and Hip. LIMITATIONS: None. FINDINGS: LUMBAR SPINE: The bone mineral density (BMD) measured from L1-L4 in the AP projection correlates with a T-score of 0.8, which is normal as defined by the World Health Organization. +4.7% change since prior study. HIP: The bone mineral density (BMD) measured in the left hip correlates with a T-score of 0 in the femoral neck, which is normal as defined by the World Health Organization. -4.1% change since prior study. IMPRESSION: 1. LUMBAR SPINE: NORMAL. 2. HIP: NORMAL. COMMENT: The World Health Organization defines low BMD as follows: T-score: Normal: Greater than -1.0 Osteopenia: Between -1.0 and -2.5 Osteoporosis: Less than -2.5 without fractures Established osteoporosis: Less than -2.5 with fractures In general, you may wish to consider: Diagnosis Treatment Follow-up DEXA Normal BMD Prevention 2-3 years Osteopenia Prevention/Therapy 1-2 years Osteoporosis Therapy Yearly TECHNICAL DOCUMENTATION: JOB ID: [id number] [employer]- All Rights Reserved Reading location - IP/workstation name: [email or web address]
--- NOTE | 2017-08-30 17:06 | WOMENS IMAGING REPORT ---
EXAM DESCRIPTION: 3D SCREENING MAMMO BILAT COMPLETED DATE/TIME: 08/30/2017 1:10 pm REASON FOR STUDY: ROUTINE SCREENING;Z12.31 Z12.31 ENCNTR SCREEN MAMMOGRAM FOR MALIGNANT NEOPLASM OF ANTHONY M85.80 OTH DISRD OF BONE DENSITY AND STRUCTURE, UNSPECIFIED E28.39 OTHER PRIMARY OVARIAN FAIL URE COMPARISON: Multiple since 2009 TECHNIQUE: Standard craniocaudal and mediolateral oblique views of each breast recorded using digita l acquisition and breast tomosynthesis. LIMITATIONS: None. FINDINGS: No masses, calcifications or architectural distortion. No areas of suspicion. Read with the assistance of CAD. .[facility] - R2 Cenova Version 1.3 .[facility] Imaging - R2 Cenova Version 1.3 .[facility] - R2 Cenova Version 2.4 .[facility] - R2 Cenova Version 2.4 .[facility] - R2 Skates Operator Version 9.2 IMPRESSION: NORMAL MAMMOGRAM. BIRADS 1. BREAST DENSITY: c. The breasts are heterogeneously dense, which may obscure small masses. BIRAD: 1 NEGATIVE RECOMMENDATION: ROUTINE SCREENING Please continue yearly bilateral screening tomosynthesis in August 2018 COMMENT: The patient has been notified of the results by letter per SA requirements. Additional no tification policies are in place for contacting patient with suspicious or incomplete findings. Quality ID #225: The [employer] recommends an annual screening mammogram for women aged 40 years or over. This facility utilizes a reminder system to ensure that all patients receive reminder letters, and/or direct phone calls for appointments. This includes reminders for routine scr eening mammograms, diagnostic mammograms, or other Breast Imaging Interventions when appropriate. Th is patient will be placed in the appropriate reminder system. The [employer] (ACR) has developed recommendations for screening MRI of the breast s in certain patient populations, to be used in conjunction with mammography. Breast MRI surveillanc e may be appropriate for women with more than 20% lifetime risk of developing breast cancer as deter mined by genetic testing, significant family history of the disease, or history of mantle radiation f or Hodgkins Disease. ACR Practice Guidelines 2008. DBT Technology DBT is a type of tomographic mammography. With conventional mammography, overlapping breast tissue ma y make lesions difficult to detect, even with good compression. DBT uses an x-ray tube that rotates a round the breast, taking images at different angles. These images are then combined to create thin sl ices of the breast that the radiologist can view as a 3D reconstruction. The Hologic unit can perform full-field digital mammograms (2D imaging); or DBT (3D imaging); or both, in a combination mode that quickly performs both the mammogram and the tomosynthesis scan while the breast is still compressed. RS [id number]: Fluoroscopic imaging is not utilized for breast tomosynthesis. TECHNICAL DOCUMENTATION: FINDING NUMBER: (1) ASSESSMENT: (1) JOB ID: [id number] [employer]- All Rights Reserved Reading location - IP/workstation name: [email or web address]
== END ==
LOC: WI 09:52
PROVIDERS: ATTEND Family Medicine
DX: Z12.31 Encounter for screening mammogram for malignant neoplasm of breast (principal); M85.80 Other specified disorders of bone density and structure, unspecified site; E28.39 Other primary ovarian failure
CPT/HCPCS: 77063; 77067; 77080